=== PATIENT | male | born 1965 | race Caucasian/White ===

== ENCOUNTER 2024-10-13 21:24 | Emergency (ER) | payer MEDICAID, SELFPAY ==
[2024-10-13 21:25] VITALS: BMI 34.2
[2024-10-13 21:28] VITALS: BP 188/125; PULSE 122; RESP 18; TEMP 37.5; O2SAT 96
--- NOTE | 2024-10-13 21:33 | EKG_ITS ---
[facility] Test Date: 2024-10-13 Pat Name: ROCKY PADRON Department: Room: - Gender: Male [employer] Operator Helper: : 1965 Requested By: ED Temporary Provider Order Number: [id number] Reading MD: ED Temporary Provider Measurements Intervals [place] Rate: 87 P: 43 CT: 182 QRS: -7 QRSD: 86 T: 32 QT: 368 QTc: 443 Interpretive Statements SINUS RHYTHM VOLTAGE CRITERIA FOR LVH [MEETS CRITERIA IN ONE OF: R(aVL), S(V1), R(V5), R(V5/V6)+S(V1)] No previous ECG available for comparison /store/S0/[id number]/ecg/[id number].pdf
--- NOTE | 2024-10-13 22:51 | XR_ITS ---
Examination: AP chest single view TECHNIQUE: AP portable semiupright chest single view Date and time: October 13, 2024, 11:43 PM INDICATION: Chest pain and coughing today FINDINGS: No significant cardiac enlargement. No pneumonia or pulmonary edema. The osseous structures are intact IMPRESSION: No active disease.
--- NOTE | 2024-10-13 22:51 | PD.EDRME ---
Rapid Medical Screening Exam [facility] Arrival date/time: 10/13/24 21:24 59M with history of HTN and smoking presents to ED with 2 days of heart palps. Patient denies CP and SOB, but does have some fatigue and cough. Chief Complaint: Arrhythmia/Palpitations Vital signs: Vital Signs Temperature 99.5 F 10/13/24 21:28 Pulse Rate 122 H 10/13/24 21:28 Respiratory Rate 18 10/13/24 21:28 Blood Pressure 188/125 H 10/13/24 21:28 Pulse Oximetry (%) 96 10/13/24 21:28 Oxygen Delivery Method Room Air 10/13/24 21:28
--- NOTE | 2024-10-13 23:08 | PD.EDARRY ---
ED Arrhythmia Palp. RME/HPI General Chief Complaint: Arrhythmia/Palpitations Stated Complaint: PALPITATIONS Time Seen by Provider: 10/13/24 23:03 Arrival date/time: 10/13/24 21:24 RME / HPI RME / HPI narrative: 10/13/24 21:24 59M with history of HTN and smoking presents to ED with 2 days of heart palps. Patient denies CP and SOB, but does have some fatigue and cough. --------- Dr. Castanon?s Main ED Evaluation: 59yo male with a history of HTN (off of medications), tobacco use presents to the ED for a chief complaint of periodic palpitations, mild shortness of breath, and generalized fatigue. No chest pain. No fever or chills. PMHx includes HTN. No known CAD. Social Hx inclued [id number] tobacco use. No alcohol or illicit drug use. Related Data Previous Rx's ?Medication ?Instructions ?Recorded diazepam 2 mg tablet (Valium) 2 mg PO BID PRN anxiety #10 tabs 10/14/24 lisinopril 10 1 tab PO QDAY #30 tabs 10/14/24 mg-hydrochlorothiazide 12.5 mg tablet lisinopril 10 1 tab PO QDAY #30 tabs 10/14/24 mg-hydrochlorothiazide 12.5 mg tablet metoprolol tartrate 25 mg tablet 25 mg PO BID #30 tabs 10/14/24 metoprolol tartrate 25 mg tablet 25 mg PO BID 30 days #60 tabs 10/14/24 Allergies Allergy/AdvReac Type Severity Reaction Status Date / Time NSAIDS (Non-Steroidal Allergy Intermediate STOMACH Verified 03/07/22 10:55 Anti-Inflamma UPSET Review of Systems Review of Systems Systems Reviewed: All systems reviewed, normal except as documented Past Medical History Social History SMOKING STATUS: Current every day smoker ED Exam Narrative Physical exam: GENERAL APPEARANCE: alert and oriented x 4, well-developed, well-nourished, no acute distress VITALS: All vitals were reviewed and the pulse ox is 96% on room air, which is normal according to my interpretation. Is markedly hypertensive. HEENT: Normocephalic, atraumatic; pupils equal, round, reactive to light; EOMI; mucous membranes pink, moist; oropharynx clear NECK: Supple LUNGS: CTABL; no wheezes, no rales, no rhonchi HEART: Tachycardic, regular rhythm; normal S1, S2; no murmurs ABDOMEN: non distended; normal BS; soft, no tenderness, no guarding, no rebound; no masses, no organomegaly, no hernia BACK: no CVA tenderness EXTREMITIES: atraumatic; no edema NEUROLOGIC: awake; alert and oriented x4; cranial nerves II-XII grossly intact; no focal sensory or motor deficits PSYCHIATRIC: appropriate mood and affect SKIN: warm, dry, normal color; no rashes Course Course Course Narrative: CXR is ordered for determining the etiology of palpitations. Quality Measures none Orders Category Date Time Status Bedside COVID-19 Antigen Test NOW Care 10/13/24 22:51 Active Bedside Influenza A&B Antigen Test NOW Care 10/13/24 22:51 Active EKG (ED ONLY) *Do not use* NOW Care 10/13/24 21:33 Completed EKG (ED Only) Stat Exams 10/13/24 21:33 Ordered XR chest 1V portable Stat Exams 10/13/24 22:51 Ordered B-Type Natriuretic Peptide Stat Lab 10/13/24 22:51 Ordered CBC Stat Lab 10/13/24 22:51 Ordered Comprehensive Metabolic Panel Stat Lab 10/13/24 22:51 Ordered Lactate (Lactic Acid) Stat Lab 10/13/24 22:51 Ordered Magnesium Stat Lab 10/13/24 22:51 Ordered Procalcitonin Stat Lab 10/13/24 22:51 Ordered Troponin I Stat Lab 10/13/24 22:51 Ordered Vital Signs Vital signs: Vital Signs Temperature 99.5 F 10/13/24 21:28 Pulse Rate 122 H 10/13/24 21:28 Respiratory Rate 18 10/13/24 21:28 Blood Pressure 188/125 H 10/13/24 21:28 Pulse Oximetry (%) 96 10/13/24 21:28 Oxygen Delivery Method Room Air 10/13/24 21:28 Arrhythmia/Palpitations MDM Narrative MDM Narrative:: Scribe Attestation: 10/13/24 Denisse Evans am scribing for and in the presence of Dr. Castanon. 59yo male with a history of HTN (off of medications), tobacco use presents to the ED for a chief complaint of periodic palpitations, mild shortness of breath, and generalized fatigue. No chest pain. Please see PE findings. CBC elevated WBC count of 15 with slight left shift, but no bandemia. CMP unremarkable. EKG without ischemia, infarct, or pericarditis. CXR without acute process. Patient placed on cardiac care nurse and was notably markedly hypertensive and tachycardic. Patient was observed for an extended period of time and treated with incremental IV antihypertensives with transient improvement. Patient is insistent on being discharged. There's no evidence of end organ damage. Patient is currently asymptomatic, although does appear mildly anxious. Will initiate patient's beta blockade therapy and emphasize compliance. Recommend close home-monitoring of BP BID and follow-up with PMD in 1-2 weeks. Dx: accelerated HTN. Dispo: home. Patient data External records reviewed:: [facility] previous records (Per chart review, patient has no relevant previous ED visits.) Clinical information provided by:: patient Social determinants that could affect healthcare access:: none Patient has the following chronic illnesses:: none How is presenting disease/condition affected by chronic disease/condition?: no chronic disease Evaluation data The following diagnostics were reviewed and interpreted by me:: lab results, radiology exam(s) and EKG tracing(s) Lab and/or radiology exams considered but not ordered:: none Interpretation Summary: EKG done at 2132, sinus tachycardia, rate of 118, no ST segment changes, left axis deviation, evidence of LVH by voltage criteria, normal intervals, according to my interpretation. Repeat EKG done at 2342, NSR, rate of 87, no ST segment changes, left axis deviation, evidence of LVH by voltage criteria, normal intervals, according to my interpretation. [place] [facility] Report Signed Patient: ROCKY PADRON [facility]. Record#: [id number] Birthdate: 1965 Age/Sex: 59 / M Location: [facility] Attending Dr: Ordering Physician: Frankie Dorado PA-C Date of Service: 10/13/24 Procedure(s): XR chest 1V portable Accession Number(s): [id number] cc: Erin Hampton PA-C; Hadley Trujillo MD; Frankie Dorado PA-C~ Examination: AP chest single view TECHNIQUE: AP portable semiupright chest single view Date and time: October 13, 2024, 11:43 PM INDICATION: Chest pain and coughing today FINDINGS: No significant cardiac enlargement. No pneumonia or pulmonary edema. The osseous structures are intact IMPRESSION: No active disease. Dictated By: Hadley Trujillo MD Signed By: <Electronically signed by Hadley Trujillo MD in [place]> 10/14/24 0002 Medications / Prescriptions Medications or Prescriptions considered but not ordered:: none Medication administrations:: see mar Consultations Consultation(s) initiated? (list below): No Diagnosis Differential diagnosis arrhythmia/palpitations: anxiety, sinus tachycardia, artial fibrillation, artial flutter and other (uncontrolled HTN, dehydratrion, electrolyte abnormality) Most likely diagnosis given after review of the tests above:: see clinical impression below Admission Indicated Admission indicated?: not indicated Admission Request Was there a request for admission?: No Disposition Plan Disposition Plan: Discharge Discharge Attestation Discharge Attestation: The patient and all family members were given an opportunity to ask questions and understood the discharge instructions. Discharge instructions specifically effects, indications for sooner follow up or return to the emergency department, and the expected course of current diagnosis. Patient condition: Stable Discharge Plan Plan Patient Disposition: HOME (Self Care) Patient condition on transfer: Stable Prescriptions/Referrals Prescriptions/Med Rec: New metoprolol tartrate 25 mg tablet 25 mg PO BID Qty: 30 1RF lisinopril-hydrochlorothiazide 10-12.5 mg tablet 1 tab PO QDAY Qty: 30 0RF diazepam [Valium] 2 mg tablet 2 mg PO BID MDD 2 PRN (Reason: anxiety) Qty: 10 0RF metoprolol tartrate 25 mg tablet 25 mg PO BID 30 Days Qty: 60 1RF lisinopril-hydrochlorothiazide 10-12.5 mg tablet 1 tab PO QDAY Qty: 30 0RF Rx Instructions: Begin above medication if systolic blood pressure is consistently greater than 160 or diastolic blood pressures greater than 95. Referrals: Erin Hampton PA-C [Primary Care Provider] - In 1 week Problem List Clinical Impression: Palpitations, Accelerated hypertension Patient/Caregiver Discharge Instructions Discharge Activity: activity as tolerated Print Language: Togolese Stand Alone Forms: Ledy Award Info., Patient Portal Info Letter
[2024-10-13 23:16] LABS: Lactate (Lactic Acid) 1.8 mMol/L (0.4-2.0)
[2024-10-13 23:19] LABS: Basophils # (Auto) 0.1 Thou/mm3 (0.0-0.2); Basophils % (Auto) 1 % (0-2.5); Eosinophils # (Auto) 0.1 Thou/mm3 (0.0-0.5); Eosinophils % (Auto) 1 % (0-10); Hematocrit 41.0 % (41.0-53.0); Hemoglobin 15.2 g/dL (13.5-16.0); Immature Granulocytes Auto 0.06 Thou/mm3 (0.00-0.00); Lymphocytes # (Auto) 1.7 Thou/mm3 (1.0-4.8); Lymphocytes % (Auto) 11 % (10-50); Mean Corpuscular HGB Conc 37.1 g/dl (31.0-37.0); Mean Corpuscular Hemoglobin 32.1 pg (25.0-35.0); Mean Corpuscular Volume 87 fL (80-100); Monocytes # (Auto) 0.8 Thou/mm3 (0.0-0.8); Monocytes % (Auto) 5 % (0-12); Neutrophils # (Auto) 12.7 Thou/mm3 (1.8-7.7); Neutrophils % (Auto) 82 % (37-80); Nucleated Red Blood Cell # 0.00 Thou/mm3 (0.00-0.00); Nucleated Red Blood Cell % 0 /100 WBC (0); Platelet Count 296 Thou/mm3 (140-440); RDW Standard Deviation 39.8 fL (35.1-43.9); Red Blood Count 4.73 Miln/mm3 (4.50-5.90); White Blood Count 15.5 Thou/mm3 (3.8-10.6)
[2024-10-13 23:31] VITALS: PULSE 94
[2024-10-13 23:34] VITALS: BP 181/116; PULSE 90; RESP 18; TEMP 36.7; O2SAT 96
[2024-10-13 23:39] VITALS: BP 181/116; PULSE 89
[2024-10-13 23:39] LABS: B-Type Natriuretic Peptide 41 pg/mL (0-100)
[2024-10-13] MEDS: DIAZEPAM INJ 5 MG/ML VIAL 2 ML 2.5 MG IVP (23:39)
[2024-10-13] MEDS: LABETALOL INJ 5 MG/ML VIAL 20 ML 10 MG IVP (23:39)
[2024-10-13] MEDS: SODIUM CHLORIDE 0.9% 1000 ML 1,000 ML 999 ML IV (23:39)
[2024-10-13 23:48] LABS: Alanine Aminotransferase 14 U/L (10-49); Albumin, Serum 5.0 gm/dL (3.5-5.0); Albumin/Globulin Ratio 1.9 (1.2-2.2); Alkaline Phosphatase 77 U/L (46-116); Anion Gap 14 (7-16); Aspartate Amino Transferase 19 U/L (0-34); BUN/Creatinine Ratio 8 Ratio (12-20); Bilirubin,Total 0.5 mg/dL (0.3-1.2); Blood Urea Nitrogen 7 mg/dL (9-23); Calcium 9.5 mg/dL (8.3-10.6); Calcium (Corrected) 9.5 mg/dL (8.5-10.1); Carbon Dioxide 23.6 mMol/L (20.0-31.0); Chloride 102 mMol/L (98-107); Creatinine (Component) 0.9 mg/dL (0.6-1.3); Estimated Creatinine Clearance 114.8 mL/min (>60); Globulin 2.7 gm/dL (2.3-3.5); Glucose 108 mg/dL (74-106); Magnesium 1.9 mg/dL (1.6-2.6); Osmolality,Calculated 278 (275-295); Potassium 3.4 mMol/L (3.4-5.1); Procalcitonin 0.08 ng/ml (0.0-0.49); Sodium 140 mMol/L (136-145); Total Protein 7.7 gm/dL (5.7-8.2); Troponin I < 0.020 ng/mL (0.0-0.045); eGFR > 60 See Note
[2024-10-14] VITALS (8 sets, daily range): BP systolic 146–181; BP diastolic 89–120; PULSE 76–87; RESP 18–19; TEMP 36.7–36.9; O2SAT 98–99
[2024-10-14] MEDS: LABETALOL INJ 5 MG/ML VIAL 20 ML IVP (00:34)
[2024-10-14] MEDS: METOPROLOL TARTRATE INJ 1 MG/ML AMP 5 ML 2.5 MG IVP (01:57)
[2024-10-14] MEDS: SODIUM CHLORIDE 0.9% 500 ML 500 ML IV (02:02)
--- NOTE | 2024-10-14 02:53 | PC.NURSE ---
PT REMOVED IV. CATH INTACT, NO REDNESS OR SWELLING AT SITE. CMS INTACT. PT DENIES ANY PAIN OR NUMBESS.
[2024-10-14] MEDS: METOPROLOL TARTRATE 25 MG TABLET PO (03:01)
--- NOTE | 2024-10-14 04:14 | PC.NURSE ---
MD informed pt BP continues to be elevated at 178/92 HR 72. New orders provided. Pt states he wants to go home and refusing medication. md at bedside speaking to pt at this time.
[2024-10-14] MEDS: hydrALAZINE INJ 20 MG/ML VIAL 10 MG IVP (04:23)
--- NOTE | 2024-10-14 04:54 | PD.EDADDENDU ---
Emergency Room Addendum Addendum Narrative: Dr. Walker requests 10 tabs of 2 mg Valium RX sent due to E-script not working for controlled substances yet. RX sent.
== END 2024-10-14 05:24 | disposition home or self-care (01) ==
PROVIDERS: Physician Assistant; Emergency Provider Emergency Medicine; PCP Physician Assistant Medical
DX: R00.2 Palpitations (principal); I10 Essential (primary) hypertension
CPT/HCPCS: 36415; 71045; 80053; 83605; 83735; 83880; 84145; 84484; 85025; 87400; 87811; 96361; 96372; 96374; 96375; 96376; 99283; J0360; J3360; J3490; J7030; J7999; A9270; J1920